=== PATIENT | female | born 1965 | race Caucasian/White ===

== ENCOUNTER 2022-12-05 05:31 | Outpatient (CLI) | payer BC, OTHER ==
[~2022-12-05] VITALS: Ht 162.5 cm; Wt 104.1 kg
[2022-12-05] MEDS ORDERED: MELO15TA39 PO (13:22)
== END 2022-12-05 13:34 ==
LOC: PREOP 05:31
PROVIDERS: ATTEND Podiatrist Foot & Ankle Surgery
DX: Z01.818 Encounter for other preprocedural examination (principal)

== ENCOUNTER 2022-12-12 06:11 | Day surgery (SDC) | payer BC, OTHER ==
[~2022-12-12] VITALS: Ht 162.5 cm; Wt 104.1 kg
[2022-12-12] VITALS (11 sets, daily range): BP systolic 128–161; BP diastolic 84–107
[~2022-12-12 06:11] MED LIST: MELO15TA39 PO
[2022-12-12] MEDS ORDERED: CLINDAMYCIN 600 MG/50 ML IVPB 50 ML IV ONE (06:30)
[2022-12-12] MEDS: LACTATED RINGERS 1,000 ML IV PRN ×2 (06:40→08:48)
[2022-12-12] MEDS ORDERED: MIDAZOLAM 2 MG/2 ML (VERSED) VIAL ONE (06:58)
[2022-12-12] MEDS ORDERED: proPOfol 200 MG/20 ML (DIPRIVAN) VIAL IV ONE (06:58)
[2022-12-12] MEDS ORDERED: ONDANSETRON 4 MG/2 ML (SDV) Z0FRAN ONE (06:58)
[2022-12-12] MEDS ORDERED: fentaNYL INJ 100 MCG/2 ML AMP ONE (06:58)
[2022-12-12] MEDS ORDERED: LIDOCAINE PF 2% 5 ML (XYLOCAINE) VIAL ONE (06:58)
[2022-12-12] MEDS ORDERED: BUPIVACAINE 0.5% 30 ML VIAL ONE (07:33)
[2022-12-12] MEDS ORDERED: LIDOCAINE 1% INJ 20 ML VIAL ONE (07:33)
--- NOTE | 2022-12-12 07:42 | Progress Note-Pre Operative ---
Pre-Operative Progress Note Date of Available H&P: Dec 12, 2022 Date H&P Reviewed: Dec 12, 2022 Time H&P Reviewed: 07:42 Pre-Operative Diagnosis: Hallux Valgus, Hypertrophic 2nd Metatarsal, 2nd Hammertoe, right DHIRAJ MATUTE DPM Dec 12, 2022 07:42
[2022-12-12] MEDS ORDERED: SEVOFLURANE (ULTANE) 15 ML INHAL SOLN ONE (09:50)
--- NOTE | 2022-12-12 09:58 | Progress Note-Post Operative ---
Post-Operative Progess Note Surgeon (s)/Prepper (s) Surgeon DHIRAJ MATUTE DPM Prepper: none Pre-Operative Diagnosis Hallux Valgus, Hypertrophic 2nd Metatarsal, 2nd Hammertoe, right Post-Operative Diagnosis Same Procedure & Operative Findings Date of Procedure 12/12/22 Procedure Performed/Findings Arthrodesis of the 1st MTPJ, 2nd metatarsal osteotomy, reduction of 2nd hammertoe, right foot Anesthesia Type General Estimated Blood Loss Estimated blood loss (mL): Minimal Specimens/Packing Specimens Removed none DHIRAJ MATUTE DPM Dec 12, 2022 09:58
[2022-12-12] MEDS ORDERED: ONDANSETRON 4 MG/2 ML (SDV) Z0FRAN IVP PRN (10:00)
[2022-12-12] MEDS ORDERED: HYDROmorphone 2 MG/ML VIAL (DILAUDID) IV ONE (10:00)
[2022-12-12] MEDS ORDERED: LACTATED RINGERS 1,000 ML IV SCH (10:00)
[2022-12-12] MEDS ORDERED: morphine INJ 10 MG/ML 1ML (SYR OR VIAL) IVP ONE (10:00)
[2022-12-12] MEDS ORDERED: HYDROcodone/ACETAMINOPHEN 5 MG/325 MG TABLET PO PRN (10:00)
[2022-12-12] MEDS ORDERED: ACHD5005 PO (10:03)
[2022-12-12] MEDS ORDERED: CLIN150C2 PO (10:03)
[2022-12-12] MEDS ORDERED: BUPIVACAINE 0.5% 30 ML VIAL INJ ONE (10:26)
--- NOTE | 2022-12-12 11:29 | Anesthesia-General Post-Op ---
General Patient Condition Mental Status/LOC: Same as Preop Cardiovascular: Satisfactory Nausea/Vomiting: Absent Respiratory: Satisfactory Pain: Controlled Complications: Absent Post Op Complications Complications None Follow Up Care/Instructions Patient Instructions None needed. Anesthesia/Patient Condition Patient Condition Patient is doing well, no complaints, stable vital signs, no apparent adverse anesthesia problems. No complications reported per nursing. JESSICA DE DIOS CRNA Dec 12, 2022 11:29
--- NOTE | 2022-12-12 15:56 | Physical Therapy Ortho Eval ---
PT Orthopedic Evaluation Type of Surgery Prior Level of Function Current Living Status: Alone Locomotion (Upon Admit): Independent Established Durable Medical Eq: None Subjective Subjective Patient lying supine in bed upon PT arrival, agreeable to treatment. Patient rates pain currently at 1/10 in right foot. Entry Into Home: Stairs Without Railing Steps Into Home: 3 Motor Control Motor Control: Motor Control WNL ROM ROM: WFL, except focal deficit Strength Strength: Gen Weak,No Focal Deficit Transfer SCALE: Activities may be completed with or without assistive devices. 4-Ggpedbbegd-gwlvklx completes the activity by him/herself with no assistance from a helper. 5-Set-up or Clean-up Assistance-helper sets up or cleans up; patient completes activity. [place] assists only prior to or following the activity. 4-Supervision or Touching Assistance-helper provides verbal cues and/or touching/steadying and/or contact guard assistance as patient completes activity. Assistance may be provided throughout the activity or intermittently. 3-Partial/Moderate Assistance-helper does LESS THAN HALF the effort. [place] lifts, holds or supports trunk or limbs, but provides less than half the effort. 2-Substantial/Maximal Assistance-helper does MORE THAN HALF the effort. [place] lifts or holds trunk or limbs and provides more than half the effort. 1-Vyuofzkxm-iywqfd does ALL the effort. Patient does none of the effort to complete the activity. Or, the assistance of 2 or more helpers is required for the patient to complete the activity. If activity was not attempted, code reason: 7-Patient Refused. 9-Not Applicable-not attempted and the patient did not perform the activity before the current illness, exacerbation or injury. 10-Not Attempted due to Environmental Limitations-(lack of equipment, weather restraints, etc.). 88-Not Attempted due to Medical Conditions or Safety Concerns. Transfers (B, C, W/C) (QC): 4 Gait Gait Assistive Device: Crutches Right Lower Extremity: Right Weight Bearing Status RLE: Non Weight Bearing Left Lower Extremity: Left Weight Bearing Status LLE: Full Weight Bearing Gait (QC): 4 Distance: 30' Stairs #of Steps: 3 Walking Assistive Device: Crutches Treatment Rendered Treatment: Gait Train, Step Train Assessment/Goals Goal Time Frame: 1 Visit Safe Ambulation: No Patient educated on NWB Right LE and re-educated 5+ times during gait and stair training. Patient does not maintain NWB RLE. Plan Treatment Plan: Discharge Time Time In: 1204 Time Out: 1218 Total Billed Treatment Time: 14 Billed Treatment Time Visit, JAYESH LBUM PT Dec 12, 2022 15:56
--- NOTE | 2022-12-12 16:02 | Diagnostic Imaging Report ---
Right foot at 1008 hours. Indication: Postop AP and lateral views were obtained. There is an orthopedic fixation pin extending longitudinally through the phalanges of the 2nd digit. The orthopedic hardware appears to be in good position. The head of the proximal phalanx of the 2nd digit has been resected. There is also an orthopedic fixation screw traversing the head of the 2nd metatarsal. There is also deformity of the neck and 2nd metatarsal. This does suggest prior trauma. There is an orthopedic plate and screw fixation device along the anterior aspect of the 1st metatarsophalangeal joint. The opaque hardware seems to be in good position. There is no fracture or acute bony abnormality noted. The soft tissues are unremarkable. Impression: There are postsurgical changes involving the 1st and 2nd rays as described above. There is no acute bony abnormality noted. Dictated by: Dictated on workstation # [id number]
--- NOTE | 2022-12-12 16:52 | OPERATIVE REPORT ---
DATE OF SERVICE: 12/12/2022 SURGEON: Gissel Matute DPM POSTOPERATIVE DIAGNOSES: 1. Hallux abductovalgus metatarsal primus varus, right foot. 2. Hypertrophic second metatarsal, right foot. 3. Hammer digit syndrome, right second toe. POSTOPERATIVE DIAGNOSES: 1. Hallux abductovalgus metatarsal primus varus, right foot. 2. Hypertrophic second metatarsal, right foot. 3. Hammer digit syndrome, right second toe. PROCEDURES PERFORMED: 1. Arthrodesis of the right first metatarsophalangeal joint. 2. Second metatarsal osteotomy with screw fixation. 3. Reduction of hammertoe, right second digit. WOUND CLASS: Clean. ANESTHESIA: General. HEMOSTASIS: Pneumatic thigh tourniquet at 250 mmHg. INDICATIONS: This 57-year-old female presents complaining of a painful right foot. She has undergone a previous bunionectomy with limited success also a second toe hammertoe reduction. She continues to have pain and discomfort. Due to her history of rheumatoid arthritis, I felt it was appropriate to do an arthrodesis rather than an attempt at secondary bunionectomy. This will help reduce permanently the hallux valgus deformity and reduce the medial eminence, and also control the first ray much better. The patient was agreeable to surgical intervention after risks and complications were discussed at length. No guarantees were extended to the patient and she is willing to proceed. DESCRIPTION OF PROCEDURE: The patient was brought back to the operating table and placed in secure supine position. General anesthetic was then induced. Pneumatic thigh tourniquet was placed on the right lower extremity over several layers of padding. The right foot was then prepped and draped in normal sterile manner. The right foot was then elevated and allowed to exsanguinate after which the tourniquet was inflated to 250 mmHg. Attention was then directed to the dorsal aspect of the right first metatarsophalangeal joint where a 6 cm longitudinal linear incision was created. The incision was deepened in the same plane with great care to identify and retract all vital neurovascular structures. Only the necessary blood vessels were cauterized as encountered. Dorsal capsulorrhaphy was performed exposing the dorsal and medial eminence of the first metatarsal head, which was resected utilizing a power sagittal saw. Next, utilizing the standard [employer] 28 first MTP plate protocol, an arthrodesis to the right first metatarsophalangeal joint was performed. This included the released the medial and lateral collateral ligaments. A guidewire was driven down the head of the first metatarsal after a drill hole was overlying the metatarsal head, creating a perfect spherical surface. Next, a guidewire was placed to the base of the proximal phalanx and the concavity was then created in a perfectly spherical orientation. Next, fenestration was performed with a guidewire to allow for better bleeding into the joint for arthrodesis. The wounds were flushed with normal saline. Next, utilizing the dorsal plating system from [employer], which was a 5-degree dorsiflexion medium right, excellent fixation was appreciated. The fracture groove was with 3.5 x 22 mm length headed screw from distal medial to proximal lateral. The plating had 2.7 locking screws. The proximal aspect was 22, 18 and 16. The distal had 16, 14 screws. Excellent bony apposition and fixation was appreciated as well as a good reduction of the hallux valgus deformity. The construct was very stable. The wound was flushed with copious amounts of normal saline throughout the procedure and closure was then performed in layers. Deep closure was performed with 3-0 Vicryl, superficial with 4-0 Vicryl, skin closure with 4-0 Prolene in a horizontal mattress type stitch. Attention was then directed to the dorsal aspect of the right first metatarsophalangeal joint. The incision was deepened down to the extensor tendon where a Z-slide lengthening was performed overlying the proximal phalanx. The extensor tendon was released proximally and the extensor oswald released. A dorsal capsulorrhaphy was performed to the first metatarsophalangeal joint. This exposed the hypertrophic head of the second metatarsal where a [place] type osteotomy was performed. This allowed the capital fragment to translocate proximally and slightly medially and it was fixated in its corrected position utilizing a 2.0 snap-off screw of 12 mm of length. Excellent bony apposition and fixation was appreciated. The foot further contoured and smoothed. Smoothing of the second metatarsal head was performed with rongeur and power bur. The wound was flushed with copious amounts of normal saline. Attention was then directed to the proximal interphalangeal joint of the right second toe where a medial and lateral collateral ligaments were released. The head of the proximal phalanx was fashioned into a peg, utilizing a power sagittal saw and power bur and a hole was created to the base of the middle phalanx with a power bur for the peg-in-hole arthrodesis. Next, a 0.054 K-wire was driven down the toe, securing the arthrodesis in a rectus position. The excess K-wire was cut and a protective ball placed over the end of the wire. The wound was flushed with copious amounts of normal saline and closure was performed in layers. Deep closure was performed with 3-0 Vicryl, superficial with 4-0 Vicryl, skin closed with 4-0 Prolene in a horizontal mattress type stitch. Attention was then directed to the dorsal aspect of the foot where anesthesia was achieved utilizing 20 mL of 0.5% Marcaine injected in a local infusion to the surgical sites. Postoperative dressing consisted of Betadine-soaked Adaptic, sterile 4 x 4's, sterile Kerlix, all secured with a Coban wrap. The patient tolerated the anesthesia and procedure well and was transported from the operating room to the recovery room with vital signs stable and vascular status intact to all digits of the right foot. She is to be nonweightbearing on the right forefoot. Heel contact is for transfers and balance only. We will see the patient back in 10 days' period of time or sooner, if necessary. Job ID: [id number] DocumentID: [id number] Dictated Date: 12/12/2022 10:14:05 Engineering Lecturer Date: 12/12/2022 16:50:00 Dictated By: GISSEL MATUTE DPM
== END 2022-12-12 13:09 | disposition home or self-care (01) ==
LOC: SDC 06:11
PROVIDERS: ATTEND Podiatrist Foot & Ankle Surgery
DX: M20.11 Hallux valgus (acquired), right foot (principal); M89.371 Hypertrophy of bone, right ankle and foot; M20.41 Other hammer toe(s) (acquired), right foot; E66.01 Morbid (severe) obesity due to excess calories; Z68.39 Body mass index [BMI] 39.0-39.9, adult
CPT/HCPCS: 28285; 28308; 28750; 73620; 87081; 97161; C1713 ×13